=== PATIENT | female | born 1985 | race Caucasian/White ===

== ENCOUNTER 2024-03-13 18:07 | Emergency (ER) | payer MEDICAID, OTHER ==
--- NOTE | 2024-03-13 18:22 | ED ---
Abdominal Pain HPI - General Chief Complaint: Abdominal Pain Stated Complaint: abd pain Time Seen by Provider: 03/13/24 18:22 Source: patient, RN notes reviewed Mode of arrival: ambulatory Limitations: no limitations - History of Present Illness Initial Comments: 39-year-old female presents emergency department chief complaint of her right upper quadrant abdominal pain that has been present since this morning. Patient states that the pain is colicky in nature and will intensify during the day. She endorses radiation of the pain into her right shoulder. She endorses nausea with no episodes of emesis. Denies fevers or chills. Denies urinary symptoms. - Related Data Allergies Allergy/AdvReac Type Severity Reaction Status Date / Time No Known Allergies Allergy Verified 03/13/24 18:17 Review of Systems ROS Statement: Those systems with pertinent positive or pertinent negative responses have been documented in the HPI. ROS Other: All systems not noted in ROS Statement are negative. Past Medical History Past Medical History: No Reported History Additional Past Surgical History / Comment(s): Breast augmention, cyst removal L ear Smoking Status: Vaper Past Alcohol Use History: Rare Past Drug Use History: None Reported General Exam Limitations: no limitations General appearance: alert, in no apparent distress ENT exam: Present: normal exam, mucous membranes moist Neck exam: Present: normal inspection. Absent: tenderness, meningismus, lymphadenopathy Respiratory exam: Present: normal lung sounds bilaterally. Absent: respiratory distress, wheezes, rales, rhonchi, stridor Cardiovascular Exam: Present: regular rate, normal rhythm, normal heart sounds. Absent: systolic murmur, diastolic murmur, rubs, gallop, clicks GI/Abdominal exam: Present: soft, tenderness (RUQ), normal bowel sounds. Absent: distended, guarding, rebound, rigid Extremities exam: Present: normal inspection, full ROM, normal capillary refill. Absent: tenderness, pedal edema, joint swelling, calf tenderness Skin exam: Present: warm, dry, intact, normal color. Absent: rash Course Vital Signs 03/13/24 03/13/24 18:15 20:19 Temperature 97.8 F 98.0 F Pulse Rate 87 64 Respiratory 16 18 Rate Blood Pressure 123/78 124/78 O2 Sat by Pulse 99 100 Oximetry Medical Decision Making - Medical Decision Making Was pt. sent in by a medical professional or institution (, PA, MOWER SHARPENER, urgent care, hospital, or alf...) When possible be specific @ -No Did you speak to anyone other than the patient for history (EMS, parent, family, police, friend...)? What history was obtained from this source @ -No Did you review nursing and triage notes (agree or disagree)? Why? @ -I reviewed and agree with nursing and triage notes Were old charts reviewed (outside hosp., previous admission, EMS record, old EKG, old radiological studies, urgent care reports/EKG's, alf records)? Report findings @ -No old charts were reviewed Differential Diagnosis (chest pain, altered mental status, abdominal pain women, abdominal pain men, vaginal bleeding, weakness, fever, dyspnea, syncope, headache, dizziness, GI bleed, back pain, seizure, CVA, palpatations, mental health, musculoskeletal)? @ -Differential Abdominal Pain Women: Appendicitis, Cholecystitis, diverticulosis, ischemic bowel, pancreatitis, hepatitis, UTI, gastroenteritis, AAA, incarcerated hernia, bowel obstruction, constipation, inflammatory bowel, hepatitis, peptic ulcer disease, splenic infarction, perforated viscus, vulvitis, ovarian torsion, PID, kidney stone, placenta abruption, this is not meant to be an all-inclusive list EKG interpreted by me (3pts min.). @ -None X-rays interpreted by me (1pt min.). @ -None CT interpreted by me (1pt min.). @ -None done U/S interpreted by me (1pt. min.). @ -US gallbladder reveals a gallbladder filled with cholelithiasis with no evidence for acute cholecystitis. What testing was considered but not performed or refused? (CT, X-rays, U/S, labs)? Why? @ -None What meds were considered but not given or refused? Why? @ -None Did you discuss the management of the patient with other professionals (professionals i.e. , PA, MOWER SHARPENER, lab, RT, psych nurse, social worker clinical, legal archivist, teacher, radio electronics officer, correctional case records supervisor)? Give summary @ -No Was smoking cessation discussed for >3mins.? @ -No Was critical care preformed (if so, how long)? @ -No Were there social determinants of health that impacted care today? How? (Laisha elessness, low income, unemployed, alcoholism, drug addiction, transportation, low edu. Level, literacy, decrease access to med. care, longterm, rehab)? @ -No Was there de-escalation of care discussed even if they declined (Discuss DNR or withdrawal of care, Hospice)? DNR status @ -No What co-morbidities impacted this encounter? (DM, HTN, Smoking, COPD, CAD, Cancer, CVA, ARF, Chemo, Hep., AIDS, mental health diagnosis, sleep apnea, morbid obesity)? @ -None Was patient admitted / discharged? Hospital course, mention meds given and route, prescriptions, significant lab abnormalities, going to OR and other pertinent info. @ -Discharge. 39-year-old female with right upper quadrant abdominal pain. Patient is vitals are stable is afebrile nontachycardic. Patient's abdominal exam reveals right upper quadrant tenderness to palpation. She is symptomatically treated with antiemetics pending laboratory results and ultrasound imaging. CBC, CMP unremarkable, lactic acid nonelevated, amylase and lipase within normal limits, hCG negative. Discussed with patient at bedside that symptoms are likely secondary to biliary colic and recommend that she follow-up outpatient with her primary care provider for further evaluation and potential HIDA scan for evaluation of gallbladder function. All questions answered at bedside and strict return parameters discussed with the patient she is verbalized understanding. Case discussed with Dr. Michele. Undiagnosed new problem with uncertain prognosis? @ -No Drug Therapy requiring intensive monitoring for toxicity (Heparin, Nitro, Insulin, Cardizem)? @ -No Were any procedures done? @ -No Diagnosis/symptom? @ -biliary colic Acute, or Chronic, or Acute on Chronic? @ -Acute Uncomplicated (without systemic symptoms) or Complicated (systemic symptoms)? @ -Uncomplicated Side effects of treatment? @ -No Exacerbation, Progression, or Severe Exacerbation? @ -No Poses a threat to life or bodily function? How? (Chest pain, USA, MS, pneumonia, PE, COPD, DKA, ARF, appy, cholecystitis, CVA, Diverticulitis, Homicidal, Suicidal, threat to staff... and all critical care pts) @ -No - Lab Data Result diagrams: 03/13/24 18:21 03/13/24 18:21 Lab Results 03/13/24 03/13/24 03/13/24 Range/Units 18:21 18:21 18:21 WBC 7.5 (3.8-10.6) k/uL RBC 4.24 (3.80-5.40) m/uL Hgb 11.0 L (11.4-16.0) gm/dL Hct 33.5 L (34.0-46.0) % MCV 79.0 L (80.0-100.0) fL MCH 26.1 (25.0-35.0) pg MCHC 33.0 (31.0-37.0) g/dL RDW 14.7 (11.5-15.5) % Plt Count 367 (150-450) k/uL MPV 7.6 Neutrophils % 60 % Lymphocytes % 31 % Monocytes % 6 % Eosinophils % 1 % Basophils % 1 % Neutrophils # 4.5 (1.3-7.7) k/uL Lymphocytes # 2.3 (1.0-4.8) k/uL Monocytes # 0.4 (0-1.0) k/uL Eosinophils # 0.1 (0-0.7) k/uL Basophils # 0.1 (0-0.2) k/uL Sodium 138 (137-145) mmol/L Potassium 4.1 (3.5-5.1) mmol/L Chloride 108 H (98-107) mmol/L Carbon Dioxide 22 (22-30) mmol/L Anion Gap 8 mmol/L BUN 14 (7-17) mg/dL Creatinine 0.91 (0.52-1.04) mg/dL Est GFR (CKD-EPI)AfAm >90 (>60 ml/min/1.73 sqM) Est GFR (CKD-EPI)NonAf 80 (>60 ml/min/1.73 sqM) Glucose 96 (74-99) mg/dL Plasma Lactic Acid Jeovany 0.6 L (0.7-2.0) mmol/L Calcium 9.5 (8.4-10.2) mg/dL Total Bilirubin 0.3 (0.2-1.3) mg/dL AST 19 (14-36) U/L ALT 13 (4-34) U/L Alkaline Phosphatase 55 (38-126) U/L Total Protein 7.0 (6.3-8.2) g/dL Albumin 4.3 (3.5-5.0) g/dL Amylase 67 (30-110) U/L Lipase 244 (23-300) U/L HCG, Quant <2.4 mIU/mL Disposition Clinical Impression: Biliary colic Disposition: HOME SELF-CARE Condition: Good Instructions (If sedation given, give patient instructions): Biliary Colic (ED) Additional Instructions: Return to the emergency department for any new or worsening symptoms. Recommend that you follow-up outpatient with your primary care provider for further evaluation of biliary colic. Is patient prescribed a controlled substance at d/c from ED?: No Referrals: Nonstaff,Physician [Primary Care Provider] - 1-2 days Time of Disposition: 20:18
[2024-03-13] MEDS: ONDANSETRON 4 MG/2 ML VIAL IVP STA (18:39)
[2024-03-13 19:00] LABS: Basophils # (A) 0.1 k/uL (0-0.2); Basophils % (A) 1 %; Eosinophils # (A) 0.1 k/uL (0-0.7); Eosinophils % (A) 1 %; HCT 33.5 % (34.0-46.0); Lymphocytes # (A) 2.3 k/uL (1.0-4.8); Lymphocytes % (A) 31 %; MCH 26.1 pg (25.0-35.0); Mean Platelet Volume 7.6; Monocytes # (A) 0.4 k/uL (0-1.0); Monocytes % (A) 6 %; Neutrophils # (A) 4.5 k/uL (1.3-7.7); Neutrophils % (A) 60 %; Platelet Count 367 k/uL (150-450); RBC 4.24 m/uL (3.80-5.40); RDW 14.7 % (11.5-15.5); WBC 7.5 k/uL (3.8-10.6)
[2024-03-13 19:13] LABS: ALT 13 U/L (4-34); AST 19 U/L (14-36); African American GFR (CKD) >90 (>60 ml/min/1.73 sqM); Albumin 4.3 g/dL (3.5-5.0); Alkaline Phosphatase 55 U/L (38-126); Amylase 67 U/L (30-110); Anion Gap 8 mmol/L; Blood Urea Nitrogen 14 mg/dL (7-17); Calcium 9.5 mg/dL (8.4-10.2); Carbon Dioxide 22 mmol/L (22-30); Chloride 108 mmol/L (98-107); Glucose 96 mg/dL (74-99); Lipase 244 U/L (23-300); Non-African American GFR(CKD) 80 (>60 ml/min/1.73 sqM); Potassium 4.1 mmol/L (3.5-5.1); Sodium 138 mmol/L (137-145); Total Bilirubin 0.3 mg/dL (0.2-1.3)
[2024-03-13 19:29] LABS: HCG,Quantitative Serum <2.4 mIU/mL
--- NOTE | 2024-03-13 19:42 | US ---
EXAMINATION TYPE: US gallbladder DATE OF EXAM: 03/13/2024 COMPARISON: NONE CLINICAL INDICATION: Female, 39 years old with history of RUQ ab pain, nausea; Patient states RUQ oswaldo n since 7:30 am. Nausea. Last ate around 5pm TECHNIQUE: Multiple sonographic images of the right upper quadrant are obtained. FINDINGS: EXAM MEASUREMENTS: Liver Length: 15.7 cm Gallbladder Wall: 0.2 cm CBD: 0.3 cm Right Kidney: 9.0 x 3.8 x 4.3 cm IRONWORKER NOTES: Pancreas: Visualized portions wnl. Tail obscured by bowel gas Liver: wnl Gallbladder: EDNA sign seen. Wall appears WNL as best seen Evidence for sonographic Pickens's sign: No CBD: wnl Right Kidney: wnl IMPRESSION: Gallbladder appears filled with cholelithiasis, however no evidence of acute cholecystitis. [facility], , 03/13/2024 7:39 PM
[2024-03-13 20:22] VITALS: BP 124/78; PULSE 64; RESP 18; TEMP 98
== END 2024-03-13 20:21 | disposition home or self-care (01) ==
LOC: EC 18:07
CPT/HCPCS: 36415; 76705; 80053; 82150; 83605; 83690; 84702; 85025; 96374; 99284

== ENCOUNTER → 2024-03-28 | Outpatient (CLI) | payer OTHER, MEDICAID ==
--- NOTE | 2024-03-28 16:19 | XR ---
EXAMINATION TYPE: XR shoulder complete LT DATE OF EXAM: 03/28/2024 4:01 PM CLINICAL INDICATION: Female, 39 years old with history of 543.402A; [facility] COMPARISON: None TECHNIQUE: XR shoulder complete LT; examined in AP, internally rotated and scapular Y projections. FINDINGS: No evidence of acute osseous pathology, joint dislocation, or soft tissue swelling. The remaining po rtions of the visualized chest are unremarkable. IMPRESSION: No acute osseous pathology. [facility], , 03/28/2024 4:17 PM
== END | disposition home or self-care (01) ==
LOC: RADXRMAIN 15:59
PROVIDERS: ATTEND Emergency Medicine
DX: S43.402A Unspecified sprain of left shoulder joint, initial encounter (principal)

== ENCOUNTER → 2024-07-01 | Outpatient (CLI) | payer OTHER ==
--- NOTE | 2024-07-01 12:17 | MR ---
EXAMINATION TYPE: MR shoulder LT wo con DATE OF EXAM: 07/01/2024 11:55 AM COMPARISON: Radiograph 03/28/2024 CLINICAL INDICATION: Female, 39 years old with history of M25.512, Left shoulder pain, injury 3 mos a go. TECHNIQUE: Multiplanar, multisequence imaging of the left shoulder is performed without contrast. FINDINGS: Long head biceps tendon is intact and appropriately situated along the bicipital groove. Subscapularis tendon is intact. AC joint is intact. Both supraspinatus and infraspinatus tendons are intact though with minimal bursal sided fraying of t he supraspinatus tendon. No atrophy of the rotator cuff musculature. No effusion within the subacromial/subdeltoid bursa. There is some irregularity at the level of the posterior aspect of the superior labrum, coronal image 15. No para labral cyst. The glenohumeral joint appears intact. Physiologic joint fluid. No Hill-Sachs deformity or os acromiale. No suspicious bone marrow replacement. IMPRESSION: 1. Suspect a small SLAP tear at the posterior aspect of the superior labrum. Correlate with physical exam findings. 2. Minimal bursal sided fraying of the supraspinatous tendon. No rotator cuff tear or other specific abnormality seen. [facility], Workstation: [id number], 07/01/2024 12:15 PM
== END | disposition home or self-care (01) ==
LOC: RADMRIMAIN 11:18
PROVIDERS: ATTEND Orthopaedic Surgery
DX: S49.92XA Unspecified injury of left shoulder and upper arm, initial encounter (principal); X58.XXXA Exposure to other specified factors, initial encounter

== ENCOUNTER 2024-08-23 05:34 | Day surgery (SDC) | payer OTHER ==
[2024-08-20 14:00] VITALS: BMI 23.2
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
[2024-08-23] MEDS: LACTATED RINGERS 1,000 ML IV SCH (06:41)
[2024-08-23] MEDS: DEXAMETHASONE SOD PHOSPHATE 4 MG/ML 1 ML VIAL IV ONE (06:42)
[2024-08-23] MEDS: SCOPOLAMINE 1 MG/72 HR PATCH TRANSDERM ONE (06:42)
[2024-08-23] MEDS: ONDANSETRON 4 MG/2 ML VIAL IVP ONE (06:42)
[2024-08-23] MEDS: IV FLUID CONTINUATION 1,000 ML IV ONE ×2 (06:47→09:42)
[2024-08-23] MEDS: MIDAZOLAM 2 MG/2 ML VIAL IV PRN (06:55)
[2024-08-23] MEDS ORDERED: HYDROmorphone 0.5 MG/0.5 ML SYRINGE IVP PRN (07:00)
[2024-08-23] MEDS ORDERED: SUCCINYLCHOLINE CHLORIDE 200 MG/10 ML VIAL IV ONE (07:30)
[2024-08-23] MEDS ORDERED: DEXAMETHASONE SOD PHOSPHATE 4 MG/ML 1 ML VIAL ONE (07:30)
[2024-08-23] MEDS ORDERED: ROPIVACAINE 5 MG/ML 30 ML VIAL ONE (07:30)
[2024-08-23] MEDS ORDERED: PHENYLEPHRINE-0.9% NACL SYG 1,000 MCG/10 ML SYRINGE ONE (07:30)
[2024-08-23] MEDS ORDERED: fentaNYL (PF) 50 MCG/ML 2 ML AMP ONE (07:30)
[2024-08-23] MEDS ORDERED: LIDOCAINE 1% INJ 10MG/ML (20 ML MDV) ONE (07:30)
[2024-08-23] MEDS ORDERED: MIDAZOLAM 2 MG/2 ML VIAL ONE (07:30)
[2024-08-23] MEDS ORDERED: PROPOFOL 10 MG/ML 20 ML VIAL IV ONE (07:30)
[2024-08-23] MEDS: EPINEPHrine (PF) 1 ML in SODIUM CHLORIDE 0.9% IRRIGATIO 3,000 ML IRRIGATION ONE ×4 (07:57)
--- NOTE | 2024-08-23 08:41 | P.OP ---
Date of Procedure: 08/23/24 Preoperative Diagnosis: Left shoulder impingement/partial-thickness rotator cuff tear Postoperative Diagnosis: Same in addition to posterior labral tear Procedure(s) Performed: Left shoulder arthroscopic subacromial decompression/rotator cuff debridement/p osterior labral debridement Anesthesia: elias MUÑIZ Surgeon: Irineo Marquez Home Companion #1: Guido Michelle Estimated Blood Loss (ml): 10 Pathology: none sent Condition: stable Disposition: PACU Indications for Procedure: The patient is a 39-year-old female who presents after a previous injury with persistent left shoulder pain despite conservative measures. A discussion of the risks and benefits of operative intervention versus continued conservative measures was made with the patient. She opted to proceed with surgery. Operative risks include infection, neurovascular injury, development of blood clots, possible incomplete resolution of symptoms, possible worsening of symptoms and need for subsequent procedures was discussed. Informed consent was obtained. Operative Findings: As below Description of Procedure: The patient was brought to the operating room, and after induction of general anesthesia was placed in a beachchair position. A preoperative interscalene block was placed for postoperative analgesia. I examined the left shoulder. There was no gross block to passive motion or gross glenohumeral instability. The [] upper extremity was prepped and draped in normal fashion. The bony outlines the acromion, distal clavicle, and coracoid process were outlined with a skin marker. The glenohumeral joint was inflated with 50 mL of saline utilizing a spinal needle from posterior approach. A posterior portal was made through a 5 mm skin incision 1 cm medial and inferior to the posterior lateral border time. A blunt trocar was used to easily into the joint. Diagnostic arthroscopy was performed. An anterior portal was made just lateral to the coracoid process entering the joint above the subscapularis tendon. The subscapularis tendon appeared to be intact. Anterior labrum was intact. The inferior recess was inspected. The posterior labrum was intact. The biceps and its anchor appear to be intact. There was a posterior labral tear with fraying that was debrided back to stable base with a motorized shaver. The remaining posterior labrum appeared to be intact on inspection the rotator cuff, it was intact on the articular surface. The arthroscope was placed into the subacromial space. A lateral portal was made 2 centimeters inferior to the anterior lateral border of the acromion. The soft tissue on the undersurface of the acromion was debrided with a motorized shaver and electrocautery clearly defining the anterior medial and lateral borders as well as the distal clavicle. An anterior inferior acromioplasty was performed with a motorized angely starting anterolateral, then extending this posteriorly, then extending this medially. I converted to a flat acromion and this was verified in the posterior and lateral viewing portals. There was significant bursal thickening that was debrided with a motorized shaver. The rotator cuff was inspected. Fraying of the bursal surface supraspinatus insertion was noted. This was debrided with a motorized shaver back to a stable base. The rotator cuff otherwise appeared to be intact. The arthroscope was then removed. The portals were closed with simple 3-0 nylon sutures. A sterile dressing was applied in addition to a sling. The patient was then awoken from general anesthesia and transferred to recovery room in good condition. Blood loss was estimated at 10 mL. No complications were incurred. Sponge and needle counts were correct in the case. Guido BARRIGA assisted and the major components of the case to include arm positioning, decompression and debridement.
[2024-08-23 08:54] VITALS: RESP 16; TEMP 96.9
[2024-08-23 10:08] VITALS: BP 111/76; PULSE 69
--- NOTE | 2024-08-23 12:34 | P.ANPRN ---
Procedure Note - Anesthesia - Nerve Block Performed Right Interscalene Single Time Out Performed: Yes Date of Procedure: 08/23/24 Procedure Start Time: 06:54 Procedure Stop Time: 06:59 Location of Patient: PreOp Indication: Acute Post-Operative Pain, Analgesia, Requested by Surgeon Sedation Type: Sedate with meaningful contact maintained Preparation: Sterile Prep Position: Sitting Needle Types: Pajunk Needle Gauge: 21 Ultrasound used to visualize needle placement: Yes Ultrasound used to observe medication spread: Yes Injectate: 0.5% Ropivacaine (see comment for volume) (Ropiv 20ml+[id number], No stimulation @0.5MA) Blood Aspirated: No Pain Paresthesia on Injection Noted: No Resistance on Injection: Normal Image Stored and Saved: Yes Events: Uneventful and Well Tolerated
== END 2024-08-23 10:42 | disposition home or self-care (01) ==
LOC: OR 05:34
PROVIDERS: ATTEND Orthopaedic Surgery
DX: S46.012A Strain of muscle(s) and tendon(s) of the rotator cuff of left shoulder, initial encounter (principal); S43.402A Unspecified sprain of left shoulder joint, initial encounter; G89.18 Other acute postprocedural pain; M25.812 Other specified joint disorders, left shoulder; G43.909 Migraine, unspecified, not intractable, without status migrainosus; F90.9 Attention-deficit hyperactivity disorder, unspecified type; F32.A Depression, unspecified; F41.9 Anxiety disorder, unspecified; K21.9 Gastro-esophageal reflux disease without esophagitis; Z79.899 Other long term (current) drug therapy; Z87.891 Personal history of nicotine dependence; Z88.8 Allergy status to other drugs, medicaments and biological substances; X58.XXXA Exposure to other specified factors, initial encounter
CPT/HCPCS: 64415; 81025; 29823; J2250; J0330; J1100; J0690; J2405; J0171; J2003; J3010; J2795; J2704; J2371